=== PATIENT | female | born 1960 | race Caucasian/White ===

== ENCOUNTER → 2016-06-12 | Outpatient (CLI) | payer OTHER ==
--- NOTE | 2016-06-12 15:23 | US ---
Ultrasound Pelvis Complete (Transabdominal and Endovaginal) Including Duplex/Doppler Imaging History: R10.2, pelvic and perineal pain. Technique: Transabdominal and endovaginal ultrasound images were obtained. Endovaginal images obtain ed for better evaluation of the uterine myometrium and adnexa. Duplex/Doppler imaging of adnexa. Findings: Uterus measures 7 x 5 x 4 cm. Endometrial thickness is 3 mm. Anterior fundal subserosal hy poechoic 0.6 x 0.6 x 0.5 cm leiomyoma. Right ovary measures 1.4 x 1.1 x 0.9 cm. Left ovary is not visualized. Right ovarian simple cyst olga uring 0.6 x 0.5 x 0.4 cm. No adnexal masses. No significant free fluid in the pelvis. Color Doppler flow to the right ovary without torsion. Impression: 1. Fundal 0.6 x 0.5 x 0.6 cm leiomyoma. 2. Right ovarian 0.6-cm simple cyst. 3. Nonvisualization of the left ovary. 4. Consider CT abdomen and pelvis imaging if clinically indicated.
== END ==
LOC: FIMAGING 13:52
PROVIDERS: ATTEND Midwife
DX: R10.2 Pelvic and perineal pain (principal); D25.2 Subserosal leiomyoma of uterus

== ENCOUNTER → 2016-07-11 | Outpatient (CLI) | payer OTHER | LOC: FIMAGING 11:09 | DX: Z12.31 Encounter for screening mammogram for malignant neoplasm of breast (principal); Z80.3 Family history of malignant neoplasm of breast | CPT/HCPCS: G0202 ==

== ENCOUNTER → 2016-12-16 | Outpatient (CLI) | payer OTHER | LOC: BMCIMAGING 09:39 | PROVIDERS: ATTEND Family Medicine | DX: Z13.9 Encounter for screening, unspecified (principal); M85.80 Other specified disorders of bone density and structure, unspecified site ==

== ENCOUNTER → 2017-07-14 | Outpatient (CLI) | payer OTHER | LOC: FIMAGING 11:09 | PROVIDERS: ATTEND Family Medicine | DX: Z12.31 Encounter for screening mammogram for malignant neoplasm of breast (principal); Z80.3 Family history of malignant neoplasm of breast ==

== ENCOUNTER → 2017-10-06 | Outpatient (CLI) | payer OTHER | LOC: FIMAGING 16:12 | PROVIDERS: ATTEND Midwife | DX: D25.9 Leiomyoma of uterus, unspecified (principal); N83.202 Unspecified ovarian cyst, left side ==

== ENCOUNTER → 2018-07-22 | Outpatient (CLI) | payer OTHER | LOC: FIMAGING 13:32 | PROVIDERS: ATTEND Family Medicine | DX: Z12.31 Encounter for screening mammogram for malignant neoplasm of breast (principal) ==